=== PATIENT | male | born 1980 | race African-American/Black ===

== ENCOUNTER 2018-02-08 01:50 | Emergency (ER) | payer MEDICAID ==
[~2018-02-08] VITALS: Ht 180.3 cm; Wt 70.0 kg
[2018-02-08 01:55] VITALS: BP 143/88
== END 2018-02-08 02:32 | disposition home or self-care (01) ==
LOC: ED 02:31
DX: F41.9 Anxiety disorder, unspecified (principal); Z72.9 Problem related to lifestyle, unspecified; Z75.9 Unspecified problem related to medical facilities and other health care; Z63.8 Other specified problems related to primary support group
CPT/HCPCS: 99284